=== PATIENT | male | born 1945 | race Caucasian/White ===

== ENCOUNTER 2020-07-15 16:16 | Outpatient (CLI) | payer MEDICARE, OTHER ==
--- NOTE | 2020-07-15 16:43 | RAD ---
Left foot 3 views: 07/15/2020 COMPARISON: None HISTORY: Right foot arthritis, pain with no history of injury FINDINGS: There is mild degenerative change involving the first metatarsal-phalangeal joint and the f irst interphalangeal joint. There is enthesophyte formation at the insertion of the Achilles tendon. There is no displaced fractu re or evidence of dislocation seen. IMPRESSION: No acute osseous abnormality.
== END 2020-07-15 16:17 | disposition home or self-care (01) ==
LOC: NAV RAD 16:16
PROVIDERS: ATTEND Family Medicine
DX: M19.071 Primary osteoarthritis, right ankle and foot (principal)

== ENCOUNTER 2021-04-01 08:18 | Emergency (ER) | payer MEDICARE, OTHER | END 2021-04-01 09:15 | disposition home or self-care (01) | LOC: NAV ERS 08:18 | DX: M25.512 Pain in left shoulder (principal); I10 Essential (primary) hypertension; E03.9 Hypothyroidism, unspecified; E78.00 Pure hypercholesterolemia, unspecified; Z79.899 Other long term (current) drug therapy ==